=== PATIENT | female | born 1985 | race Caucasian/White ===

== ENCOUNTER 2020-04-23 10:24 | Emergency (ER) | payer MEDICARE, MEDICAID ==
[2020-04-23] MEDS ORDERED: Nitroglycerin 0.4 MG Tab.SL SL ONE (10:54)
--- NOTE | 2020-04-23 11:07 | EDM.PDOC ---
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 h/o OR x 2 ("that I know about"), says she has a 40% blockage "of the main coronary artery," no stents, no bypass had CV surgery 2018 at [facility] in [facility] "to remove fluids from round my heart," cause of fluid is not clear pt says she ESRD from htn, on dialysis 3x/wk since Nov 2017 moved from [place] to [facility] for "better health care," gets only $780/m last dialysis on Sat, 5d ago, in [facility], does not have gas money to drive herself there, [place] has a form for reimbursement for gas money from [place] but not [place] where she lives smokes 1 ppd says she had biopsy of 4 areas of her kidney, that one began to bleed and had "to be tied off" damaging her kidney, pt says the biopsy showed the cause of her ESRD to be HTN currently out of her amlodipine x 3d, which she thinks is causing her sxs, "all of the meds work together", "when I don't take one, then they all stop working" PCP Dr Ronnie avitia, has seen him in the past month since moving from [facility], she did contact his office yesterday (Sat) for refill of a different med says she has been taking her meds Chest Pain Score (Numeric/FACES): 3 - Related Data Allergies Allergy/AdvReac Type Severity Reaction Status Date / Time ceftriaxone [From Rocephin] Allergy Rash Verified 04/23/20 11:12 Penicillins Allergy Rash Verified 04/23/20 11:12 Home Meds: Home Meds Aspirin [Halfprin] 81 mg PO DAILY 04/23/20 [History] Clopidogrel Bisulfate [Plavix] 75 mg PO DAILY 04/23/20 [History] Furosemide [Lasix] 80 mg PO BID 04/23/20 [History] Isosorbide Mononitrate [Imdur] 120 mg PO BID 04/23/20 [History] NIFEdipine [Nifedical XL] 60 mg PO BID 04/23/20 [History] Sevelamer Carbonate 800 mg PO TID 04/23/20 [History] carvediloL [Coreg] 25 mg PO BID 04/23/20 [History] lisinopriL [Lisinopril] 10 mg PO DAILY 04/23/20 [History] Past Medical History Cardiovascular History: Reports: Hypertension, Other (See Below) Other Cardiovascular History: coronary artery disease 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: x3 Endocrine/Metabolic History: Reports: Other (See Below) Other Endocrine/Metabolic History: ESRD on dialysis - Past Surgical History Cardiovascular Surgical History: Reports: Other (See Below) Other Cardiovascular Surgeries/Procedures: "open heart surgery due to fluid on the heart." Social & Family History - Tobacco Use Tobacco Use Status *Q: Current Every Day Tobacco User Years of Tobacco use: 15 Packs/Tins Daily: 1 - Caffeine Use Caffeine Use: Reports: Coffee, Soda - Recreational Drug Use Recreational Drug Use: No ED ROS GENERAL - Review of Systems Review Of Systems: See Below Constitutional: Reports: No Symptoms HEENT: Reports: No Symptoms Respiratory: Reports: No Symptoms Cardiovascular: Reports: No Symptoms Endocrine: Reports: No Symptoms GI/Abdominal: Reports: No Symptoms : Reports: No Symptoms Musculoskeletal: Reports: Other (sharp left arm pain) Skin: Reports: No Symptoms Neurological: Reports: No Symptoms Psychiatric: Reports: No Symptoms Hematologic/Lymphatic: Reports: No Symptoms Immunologic: Reports: No Symptoms ED EXAM, GENERAL - Physical Exam Exam: See Below Exam Limited By: No Limitations General Appearance: Alert, WD/WN, No Apparent Distress Ears: Normal External Exam, Normal Canal, Hearing Grossly Normal Ear Exam: Bilateral Ear: TM normal Nose: Normal Inspection, Normal Mucosa, No Blood Throat/Mouth: Normal Inspection, Normal Lips, Normal Teeth, Normal Gums, Normal Oropharynx, Normal Voice, No Airway Compromise Head: Atraumatic, Normocephalic Neck: Normal Inspection, Supple, Non-Tender, Full Range of Motion Respiratory/Chest: Other (mild inc'd exp phase (uses hfa at home), mild use accessory muscles, talks 10-word sentences, no dyspnea, no purse lips, no retractions, fair AE) Cardiovascular: Normal Peripheral Pulses, Regular Rate, Rhythm, No Edema, No Gallop, No JVD, No Rub GI/Abdominal: Normal Bowel Sounds, Soft, Non-Tender, No Organomegaly, No Distention, No Mass Rectal (Female) Exam: Normal Exam, Normal Rectal Tone Back Exam: Normal Inspection, Full Range of Motion, NT Extremities: Normal Inspection, Normal Range of Motion, Non-Tender, No Pedal Edema Neurological: Alert, Oriented, CN II-XII Intact, Normal Cognition, Normal Gait, No Motor/Sensory Deficits Psychiatric: Normal Affect, Normal Mood Skin Exam: Warm, Dry, Intact, Normal Color, No Rash, Other (no edema) Lymphatic: No Adenopathy Course - Vital Signs Last Recorded V/S: Last Vital Signs Temp 36.5 C 04/23/20 10:43 Pulse 70 04/23/20 13:21 Resp 18 04/23/20 13:21 BP 150/98 H 04/23/20 13: Pulse Ox 100 04/23/20 10:43 - Orders/Labs/Meds Orders: Active Orders 24 hr Category Date Time Status EKG Documentation Completion [RC] ASDIRECTED Care 04/23/20 11:48 Active EKG 12 Lead [EK] Routine Ther 04/23/20 11:48 Ordered Labs: Laboratory Tests 04/23/20 04/23/20 04/23/20 Range/Units 11:00 11:00 11:00 WBC 11.5 H (3.0-10.3) x10-3/uL RBC 3.19 L (3.60-5.20) x10(6)uL Hgb 9.1 L (11.4-15.5) g/dL Hct 28.8 L (34.2-48.2) % MCV 90.1 (76.7-100.5) fL MCH 28.5 (23.9-33.9) pg MCHC 31.6 L (31.9-34.8) g/dL RDW 15.3 (12.3-16.5) % Plt Count 390 (151-488) x10(3)uL MPV 8.7 (7.1-12.4) fL Neut % (Auto) 73.2 (30.8-76.2) % Lymph % (Auto) 13.1 L (18.4-52.1) % Mcdowell % (Auto) 11.6 (4.4-15.7) % Eos % (Auto) 1.4 (0.6-8.1) % Baso % (Auto) 0.7 (0.2-1.5) % Neut # (Auto) 8.4 H (1.5-6.3) x10-3/uL Lymph # (Auto) 1.5 (1.0-4.4) x10-3/uL Mcdowell # (Auto) 1.3 H (0.3-1.0) x10-3/uL Eos # (Auto) 0.2 (0.0-0.8) x10-3/uL Baso # (Auto) 0.1 (0.0-0.1) x10-3/uL Sodium 134 L (135-145) mmol/L Potassium 5.0 (3.5-5.3) mmol/L Chloride 102 (100-110) mmol/L Carbon Dioxide 17 L (21-32) mmol/L BUN 72 H (7-18) mg/dL Creatinine 7.8 H* (0.55-1.02) mg/dL Est Cr Clr Drug Dosing TNP Estimated GFR (MDRD) 6 L (>60) BUN/Creatinine Ratio 9.2 (9-20) Glucose 84 (80-116) mg/dL Calcium 8.3 L (8.6-10.2) mg/dL Total Bilirubin 0.2 (0.1-1.3) mg/dL AST 7 (5-25) IU/L ALT 9 L (12-36) U/L Alkaline Phosphatase 112 (56-112) IU/L Troponin I 60.7 H* (4.0-60.3) pg/mL C-Reactive Protein (0.5-0.9) mg/dL Total Protein 7.2 (6.0-8.0) g/dL Albumin 3.8 (3.5-5.2) g/dL Globulin 3.4 g/dL Albumin/Globulin Ratio 1.1 Urine Color (YELLOW) Urine Appearance (CLEAR) Urine pH (5.0-6.5) Ur Specific [place] (1.010-1.025) Urine Protein (NEGATIVE) mg/dL Urine Glucose (UA) (NORMAL) mg/dL Urine Ketones (NEGATIVE) mg/dL Urine Occult Blood (NEGATIVE) Urine Nitrite (NEGATIVE) Urine Bilirubin (NEGATIVE) Urine Urobilinogen (NEGATIVE) mg/dL Ur Leukocyte Esterase (NEGATIVE) Urine RBC (0-5) Urine WBC (0-5) Ur Squamous Epith Cells (NS,R,O) Urine Bacteria (NS) 04/23/20 04/23/20 04/23/20 Range/Units 11:00 12:32 13:00 WBC (3.0-10.3) x10-3/uL RBC (3.60-5.20) x10(6)uL Hgb (11.4-15.5) g/dL Hct (34.2-48.2) % MCV (76.7-100.5) fL MCH (23.9-33.9) pg MCHC (31.9-34.8) g/dL RDW (12.3-16.5) % Plt Count (151-488) x10(3)uL MPV (7.1-12.4) fL Neut % (Auto) (30.8-76.2) % Lymph % (Auto) (18.4-52.1) % Mcdowell % (Auto) (4.4-15.7) % Eos % (Auto) (0.6-8.1) % Baso % (Auto) (0.2-1.5) % Neut # (Auto) (1.5-6.3) x10-3/uL Lymph # (Auto) (1.0-4.4) x10-3/uL Mcdowell # (Auto) (0.3-1.0) x10-3/uL Eos # (Auto) (0.0-0.8) x10-3/uL Baso # (Auto) (0.0-0.1) x10-3/uL Sodium (135-145) mmol/L Potassium (3.5-5.3) mmol/L Chloride (100-110) mmol/L Carbon Dioxide (21-32) mmol/L BUN (7-18) mg/dL Creatinine (0.55-1.02) mg/dL Est Cr Clr Drug Dosing Estimated GFR (MDRD) (>60) BUN/Creatinine Ratio (9-20) Glucose (80-116) mg/dL Calcium (8.6-10.2) mg/dL Total Bilirubin (0.1-1.3) mg/dL AST (5-25) IU/L ALT (12-36) U/L Alkaline Phosphatase (56-112) IU/L Troponin I 63.8 H* (4.0-60.3) pg/mL C-Reactive Protein 0.7 (0.5-0.9) mg/dL Total Protein (6.0-8.0) g/dL Albumin (3.5-5.2) g/dL Globulin g/dL Albumin/Globulin Ratio Urine Color Yellow (YELLOW) Urine Appearance Clear (CLEAR) Urine pH 6.5 (5.0-6.5) Ur Specific [place] 1.010 (1.010-1.025) Urine Protein 100 H (NEGATIVE) mg/dL Urine Glucose (UA) 100 H (NORMAL) mg/dL Urine Ketones Negative (NEGATIVE) mg/dL Urine Occult Blood Moderate H (NEGATIVE) Urine Nitrite Negative (NEGATIVE) Urine Bilirubin Negative (NEGATIVE) Urine Urobilinogen Normal (NEGATIVE) mg/dL Ur Leukocyte Esterase Negative (NEGATIVE) Urine RBC 0-5 (0-5) Urine WBC 0-5 (0-5) Ur Squamous Epith Cells Few H (NS,R,O) Urine Bacteria Few H (NS) Meds: Medications Discontinued Medications Generic Name Dose Route Start Last Admin Trade Name Olaf PRN Reason Stop Dose Admin Acetaminophen 1,000 mg 04/23/20 13:03 04/23/20 13:18 Tylenol Extra Strength PO 04/23/20 13:04 1,000 mg ONETIME ONE Administration Nifedipine 60 mg 04/23/20 13:04 04/23/20 13:18 Procardia Xl PO 04/23/20 13:05 60 mg ONETIME ONE Administration Nitroglycerin 0.4 mg 04/23/20 10:54 04/23/20 11:05 Nitrostat SL 04/23/20 10:55 0.4 mg ONETIME ONE Administration - Re-Assessments/Exams Free Text/Narrative Re-Assessment/Exam: 04/23/20 13:40 repeat trop neg (60 and 63) pt ate lunch pt on cell phone, says she still has not arranged a ride to [facility] out of nifedipine XL 60 mg/d doubt cardiac ischemia, no EKG changes with LUE pain, trop x 2 neg, atypical, pt acknowledges anxiety [facility] called in verbal Rx for for nifedipine XL 60 mg bid #60, pharmacist agreed to wait for pt to arrive before closing Departure - Departure Time of Disposition: 13:43 Disposition: Home, Self-Care 01 Condition: Good Clinical Impression: Pain in left arm, Missed dialysis - Discharge Information *PRESCRIPTION DRUG MONITORING PROGRAM REVIEWED*: Not Applicable *COPY OF PRESCRIPTION DRUG MONITORING REPORT IN PATIENT ELICIA: Not Applicable Forms: ED Department Discharge Additional Instructions: Continue current meds as prescribed. Get into dialysis as soon as possible in next 24 hours if at all possible. See Dr Trujillo in 3-4 days for further recommendations. Sepsis Event Note (ED) - Evaluation Sepsis Screening Result: No Definite Risk - Focused Exam Vital Signs: Vital Signs Temp Pulse Resp BP BP Pulse Ox 04/23/20 13:21 70 18 150/98 H 04/23/20 11:24 69 145/85 H 04/23/20 11:17 69 18 152/91 H 04/23/20 11:05 175/108 H 04/23/20 11:00 74 175/108 H 04/23/20 10:43 36.5 C 77 16 178/104 H 100 - My Orders Last 24 Hours: My Active Orders 04/23/20 11:48 EKG Documentation Completion [RC] ASDIRECTED EKG 12 Lead [EK] Routine - Assessment/Plan Last 24 Hours: My Active Orders 04/23/20 11:48 EKG Documentation Completion [RC] ASDIRECTED EKG 12 Lead [EK] Routine
[2020-04-23] MEDS ORDERED: Acetaminophen 500 MG Tab PO ONE (13:03)
[2020-04-23] MEDS ORDERED: NIFEdipine 60 MG Tab.ER PO ONE (13:04)
== END 2020-04-23 13:55 | disposition home or self-care (01) ==
LOC: FB.ED 10:24
DX: M79.602 Pain in left arm (principal); I25.10 Atherosclerotic heart disease of native coronary artery without angina pectoris; I12.0 Hypertensive chronic kidney disease with stage 5 chronic kidney disease or end stage renal disease; N18.6 End stage renal disease; F17.210 Nicotine dependence, cigarettes, uncomplicated; Z99.2 Dependence on renal dialysis; Z91.15 Patient's noncompliance with renal dialysis; Z88.1 Allergy status to other antibiotic agents; Z88.0 Allergy status to penicillin; Z79.82 Long term (current) use of aspirin; Z79.02 Long term (current) use of antithrombotics/antiplatelets; Z79.899 Other long term (current) drug therapy
CPT/HCPCS: 36415; 80053; 81001; 84484; 85025; 86140; 93005; 99283-25; A9270-GY

== ENCOUNTER 2020-05-25 09:27 | Emergency (ER) | payer MEDICARE, MEDICAID ==
[2020-05-25] MEDS ORDERED: Morphine 2 MG/ML SYRINGE IVPUSH ONE (09:59)
--- NOTE | 2020-05-25 11:37 | EDM.PDOC ---
ED HPI GENERAL MEDICAL PROBLEM - General Stated Complaint: NECK/MOUTH PAIN Time Seen by Provider: 05/25/20 09:35 Source of Information: Reports: Patient History Limitations: Reports: No Limitations - History of Present Illness INITIAL COMMENTS - FREE TEXT/NARRATIVE: Patient presented to the ED because of swelling on the left side of her neck last Saturday and now its spreading to her left jaw. "it hurt when I open my mouth". There is no associated fever,chills, cough/cold symptoms. No N/V/D. left side neck and face Pain Score (Numeric/FACES): 10 - Related Data Allergies Allergy/AdvReac Type Severity Reaction Status Date / Time ceftriaxone [From Rocephin] Allergy Rash Verified 04/23/20 11:12 Penicillins Allergy Rash Verified 04/23/20 11:12 Home Meds: Home Meds Aspirin [Halfprin] 81 mg PO DAILY 04/23/20 [History] Clopidogrel Bisulfate [Plavix] 75 mg PO DAILY 04/23/20 [History] Furosemide [Lasix] 80 mg PO BID 04/23/20 [History] Isosorbide Mononitrate [Imdur] 120 mg PO BID 04/23/20 [History] NIFEdipine [Nifedical XL] 60 mg PO BID 04/23/20 [History] Sevelamer Carbonate 800 mg PO TID 04/23/20 [History] carvediloL [Coreg] 25 mg PO BID 04/23/20 [History] lisinopriL [Lisinopril] 10 mg PO DAILY 04/23/20 [History] Past Medical History Cardiovascular History: Reports: Hypertension, Other (See Below) Other Cardiovascular History: coronary artery disease 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 Endocrine/Metabolic History: Reports: Other (See Below) Other Endocrine/Metabolic History: ESRD on dialysis - Past Surgical History Cardiovascular Surgical History: Reports: Other (See Below) Other Cardiovascular Surgeries/Procedures: "open heart surgery due to fluid on the heart." Social & Family History - Caffeine Use Caffeine Use: Reports: Coffee, Soda ED ROS GENERAL - Review of Systems Review Of Systems: See Below Constitutional: Reports: No Symptoms HEENT: Reports: Ear Pain, Other (left sided neck pain) Respiratory: Reports: No Symptoms Cardiovascular: Reports: No Symptoms Endocrine: Reports: No Symptoms GI/Abdominal: Reports: No Symptoms : Reports: No Symptoms Musculoskeletal: Reports: No Symptoms Skin: Reports: No Symptoms Neurological: Reports: No Symptoms Psychiatric: Reports: No Symptoms Hematologic/Lymphatic: Reports: No Symptoms ED EXAM, GENERAL - Physical Exam Exam: See Below Exam Limited By: No Limitations General Appearance: Alert, No Apparent Distress Ears: Normal External Exam, Normal Canal, Hearing Grossly Normal Nose: Normal Inspection, Normal Mucosa, No Blood Throat/Mouth: Normal Inspection, Normal Lips, Normal Teeth Head: Atraumatic, Normocephalic Neck: Normal Inspection, Other (tender lump mid part of neck-left side) Respiratory/Chest: No Respiratory Distress, Lungs Clear, Normal Breath Sounds Cardiovascular: Normal Peripheral Pulses, Regular Rate, Rhythm, No Edema, No Gallop GI/Abdominal: Normal Bowel Sounds, Soft, Non-Tender, No Organomegaly, No Distention, No Abnormal Bruit Back Exam: Normal Inspection, Full Range of Motion Extremities: Normal Inspection, Normal Range of Motion Course - Vital Signs Text/Narrative:: Labs/CT Neck result was discussed with patient Morphine 4 mg IV x1 Zofran 4 mg IV Last Recorded V/S: Last Vital Signs Temp 36.3 C 05/25/20 09:27 Pulse 86 05/25/20 09:27 Resp 17 05/25/20 09:27 BP 162/101 H 05/25/20 09:27 Pulse Ox 100 05/25/20 09:27 - Orders/Labs/Meds Orders: Active Orders 24 hr Category Date Time Status Soft Tissue Neck wo Cont [CT] Stat Exams 05/25/20 09:58 Taken Labs: Laboratory Tests 05/25/20 05/25/20 05/25/20 Range/Units 10:12 10:12 10:12 WBC 16.1 H (3.0-10.3) x10-3/uL RBC 3.05 L (3.60-5.20) x10(6)uL Hgb 8.8 L (11.4-15.5) g/dL Hct 27.8 L (34.2-48.2) % MCV 91.1 (76.7-100.5) fL MCH 29.0 (23.9-33.9) pg MCHC 31.8 L (31.9-34.8) g/dL RDW 14.3 (12.3-16.5) % Plt Count 401 (151-488) x10(3)uL MPV 8.6 (7.1-12.4) fL Add Manual Diff Yes Neutrophils % (Manual) 81 (46-82) % Lymphocytes % (Manual) 8 L (13-37) % Monocytes % (Manual) 10 (4-12) % Eosinophils % (Manual) 1 (0-5) % PT 11.0 (9.0-11.1) sec INR 1.02 (1.00-1.24) APTT 28.7 (24.4-33.2) SECONDS D-Dimer, Quantitative 0.30 (0.0-0.59) mg/LFEU Sodium 138 (135-145) mmol/L Potassium 4.4 (3.5-5.3) mmol/L Chloride 100 (100-110) mmol/L Carbon Dioxide 22 (21-32) mmol/L BUN 44 H D (7-18) mg/dL Creatinine 6.4 H* (0.55-1.02) mg/dL Est Cr Clr Drug Dosing 8.98 mL/min Estimated GFR (MDRD) 7 L (>60) BUN/Creatinine Ratio 6.9 L (9-20) Glucose 102 (80-116) mg/dL Calcium 9.0 (8.6-10.2) mg/dL Total Bilirubin 0.2 (0.1-1.3) mg/dL AST 8 D (5-25) IU/L ALT 12 D (12-36) U/L Alkaline Phosphatase 108 (56-112) IU/L Total Protein 7.6 (6.0-8.0) g/dL Albumin 3.7 (3.5-5.2) g/dL Globulin 3.9 g/dL Albumin/Globulin Ratio 1.0 Meds: Medications Discontinued Medications Generic Name Dose Route Start Last Admin Trade Name Freq PRN Reason Stop Dose Admin Morphine Sulfate 2 mg 05/25/20 09:59 05/25/20 10:04 Morphine IVPUSH 05/25/20 10:00 2 mg ONETIME ONE Administration Departure - Departure Time of Disposition: 11:40 Disposition: DC/Tfer to Acute Hospital 02 Condition: Good Clinical Impression: Neck mass, Neck swelling - Discharge Information Sepsis Event Note (ED) - Evaluation Sepsis Screening Result: No Definite Risk - Focused Exam Vital Signs: Vital Signs Temp Pulse Resp BP Pulse Ox 05/25/20 09:27 36.3 C 86 17 162/101 H 100 - My Orders Last 24 Hours: My Active Orders 05/25/20 09:58 Soft Tissue Neck wo Cont [CT] Stat - Assessment/Plan Last 24 Hours: My Active Orders 05/25/20 09:58 Soft Tissue Neck wo Cont [CT] Stat
[2020-05-25] MEDS ORDERED: Morphine 2 MG/ML SYRINGE IVPUSH STA (11:55)
--- NOTE | 2020-05-25 12:10 | CT ---
CT SOFT TISSUE NECK WITHOUT CONTRAST (RENAL FAILURE) INDICATION: Pain and swelling left side of neck and jaw. Spiral 2.5 mm axial sections were obtained through the neck extending into the upper chest without contrast with sagittal and coronal reconstructions 05/25/2020--no comparisons. Total exam DLP was 421.91 mGy-cm. There are multitudinous nodular densities scattered throughout the lower neck and extending into the mediastinum, most prominently on the left. Possibility of lymphoma would be a consideration, although other etiology is difficult to exclude such as extensive metastatic lymphatic disease. Findings should be correlated clinically. Additional examination, possibly MRI of the neck, chest and possibly abdomen may be helpful for further evaluation. There are some minimal aortic arch calcifications noted. Lymphadenopathy in the upper neck is also noted but is much less severe than in the lower neck extending into the mediastinum. IMPRESSION: Multitudinous modular masses are noted of varying sizes scattered throughout the neck but most prominently in the lower neck--mediastinum and on the left. Lymphoma would be a consideration with this appearance; although, other etiology should be considered. Additional examination is warranted. Report called to Dr. Valenzuela at 1113 hours. [facility]
== END 2020-05-25 12:33 ==
LOC: FB.ED 09:27
DX: R22.1 Localized swelling, mass and lump, neck (principal); I25.10 Atherosclerotic heart disease of native coronary artery without angina pectoris; I12.0 Hypertensive chronic kidney disease with stage 5 chronic kidney disease or end stage renal disease; N18.6 End stage renal disease; Z99.2 Dependence on renal dialysis; Z88.1 Allergy status to other antibiotic agents; Z88.0 Allergy status to penicillin; Z79.82 Long term (current) use of aspirin; Z79.02 Long term (current) use of antithrombotics/antiplatelets; Z79.899 Other long term (current) drug therapy
CPT/HCPCS: 36415; 70490; 80053; 85025; 85379; 85610; 85730; 96374; 96376; 99284-25; 99285; J2270